=== PATIENT | female | born 1990 | race African-American/Black ===

== ENCOUNTER 2017-04-17 09:31 | Emergency (ER) | payer SELFPAY ==
[2017-04-17 10:47] LABS: APPEARANCE CLEAR (CLEAR); BACTERIA FEW /hpf (NONE SEEN); BILIRUBIN NEGATIVE (NEGATIVE); COLOR DK YELLOW (YELLOW); EPITHELIAL CELLS 0-5 /hpf (0-5); GLUCOSE NEGATIVE (NEGATIVE); KETONE NEGATIVE (NEGATIVE); LEUKOCYTE ESTERASE 1+ (NEGATIVE); MUCUS <1+ /lpf (NONE SEEN); NITRITE NEGATIVE (NEGATIVE); PROTEIN NEGATIVE (NEGATIVE); RED CELLS - URINE 0-5 /hpf (0-5); SPECIFIC GRAVITY 1.025 (1.005-1.020); UROBILINOGEN NORMAL (NORMAL); WHITE CELLS - URINE 0-5 /hpf (0-5)
== END 2017-04-17 14:27 | disposition home or self-care (01) ==
LOC: D.ER 09:31
PROVIDERS: Emergency Medicine
DX: A64 Unspecified sexually transmitted disease (principal); F17.200 Nicotine dependence, unspecified, uncomplicated

== ENCOUNTER 2018-10-31 16:45 | Emergency (ER) | payer SELFPAY ==
[~2018-10-31] VITALS: Ht 180.3 cm; Wt 68.2 kg
[2018-10-31 16:49] VITALS: Ht 180.3 cm; Wt 68.2 kg
[2018-10-31 17:49] LABS: HCG SERUM NEGATIVE (NEGATIVE)
[2018-10-31 18:01] LABS: HEMATOCRIT 32.4 % (36.0-48.0); HEMOGLOBIN 10.4 g/dL (12-16); MCH 23.1 pg (26.0-34.0); MCHC 32.1 g/dL (31.0-37.0); PLATELET COUNT 216 10x3/uL (130-400); RDW 29.2 % (11.5-14.5); WBC 8.7 10x3/uL (4.8-10.8)
[2018-10-31 18:33] LABS: BASOPHILS 1 % (0-2); EOSINOPHILS 4 % (0-7); LYMPHOCYTES 34 % (15-50); MONOCYTES 6 % (2-11); NEUTROPHILS 55 % (40-80); PLATELET ESTIMATE NORMAL; TARGET CELLS 1+
[2018-10-31 18:36] LABS: SCHISTOCYTES OCC
[2018-10-31 18:38] LABS: ALBUMIN 4.1 g/dL (3.4-5.0); ALKALINE PHOSPHATASE 45 U/L (46-116); ALT (SGPT) 7 U/L (10-68); CALC OSMOLALITY 273 mosm/kg (275-300); CALCIUM 8.6 mg/dL (8.5-10.1); CHLORIDE - SERUM 102 mmol/L (98-107); CREATININE - SERUM 0.7 mg/dL (0.6-1.3); GLUCOSE 82 mg/dL (74-106); POTASSIUM - SERUM 3.9 mmol/L (3.5-5.1); PROTEIN - SERUM 7.6 g/dL (6.4-8.2); SODIUM 138 mmol/L (136-145); UREA NITROGEN 11 mg/dL (7-18); eGFR NON AFRICAN AMERICAN > 90 mL/min (90-120)
[2018-10-31 18:42] LABS: AMYLASE - SERUM 43 U/L (25-115); CKMB 3.7 U/L (0.0-3.6); CREATINE KINASE 146 UL (21-215); MAGNESIUM - SERUM 1.8 mg/dL (1.8-2.4); PRO BNP 218 pg/mL (0-125); TROPONIN-I < 0.017 ng/mL (0.000-0.060)
[2018-10-31 18:45] LABS: ANISOCYTOSIS OCC; SPHEROCYTES 1+; TEAR DROP CELLS 2+
[2018-10-31 19:20] VITALS: BP 135/80
[2018-10-31 20:03] LABS: UDS - AMPHET POSITIVE QUAL (NEGATIVE); UDS - BARB NEGATIVE QUAL (NEGATIVE); UDS - BENZO NEGATIVE QUAL (NEGATIVE); UDS - COCAINE POSITIVE QUAL (NEGATIVE); UDS - OPIATE NEGATIVE QUAL (NEGATIVE); UDS - PCP NEGATIVE QUAL (NEGATIVE); UDS - THC POSITIVE QUAL (NEGATIVE)
[2018-10-31 20:12] LABS: APPEARANCE CLEAR (CLEAR); BILIRUBIN 1+ (NEGATIVE); COLOR DK YELLOW (YELLOW); GLUCOSE NEGATIVE (NEGATIVE); KETONE LARGE mg/dL (NEGATIVE); NITRITE NEGATIVE (NEGATIVE); PROTEIN 1+ mg/dL (NEGATIVE)
[2018-10-31 20:14] LABS: BACTERIA FEW /hpf (NONE SEEN); EPITHELIAL CELLS 0-5 /hpf (0-5); WHITE CELLS - URINE 0-5 /hpf (0-5)
== END 2018-10-31 19:20 | disposition left against medical advice (07) ==
LOC: D.ER 16:45
PROVIDERS: Family Medicine
DX: F19.10 Other psychoactive substance abuse, uncomplicated (principal); D64.9 Anemia, unspecified; D59.6 Hemoglobinuria due to hemolysis from other external causes

== ENCOUNTER 2018-11-03 17:15 | Emergency (ER) | payer SELFPAY ==
[~2018-11-03] VITALS: Ht 180.3 cm; Wt 79.2 kg
[2018-11-03 17:41] VITALS: Ht 180.3 cm; Wt 79.2 kg
[2018-11-03 20:14] VITALS: BP 120/77
== END 2018-11-03 20:14 | disposition home or self-care (01) ==
LOC: D.ER 17:15
DX: F19.10 Other psychoactive substance abuse, uncomplicated (principal)

== ENCOUNTER 2020-12-03 08:00 | Emergency (ER) | payer SELFPAY ==
[~2020-12-03] VITALS: Ht 180.3 cm; Wt 90.9 kg
[2020-12-03 08:03] VITALS: BP 158/99; Ht 180.3 cm; Wt 90.9 kg
[2020-12-03 08:29] LABS: BASOPHILS 0.5 % (0-2); EOSINOPHILS 1.1 % (0-7); HEMATOCRIT 30.1 % (36.0-48.0); HEMOGLOBIN 9.1 g/dL (12-16); IMMATURE GRANULOCYTES 0.2 % (0-5); LYMPHOCYTE ABS# 2.68 10x3/uL (1.18-3.74); LYMPHOCYTES 30.5 % (15-50); MCH 24.5 pg (26.0-34.0); MCHC 30.2 g/dL (31.0-37.0); MCV 80.9 fL (80.0-100.0); MONOCYTES 6.7 % (2-11); NEUTROPHIL ABS# 5.37 10x3/uL (1.56-6.13); RBC 3.72 10x6/uL (4.00-5.40); RDW 29.4 % (11.5-14.5); WBC 8.8 10x3/uL (4.8-10.8)
[2020-12-03 08:32] LABS: PLATELET COUNT 160 10x3/uL (130-400)
[2020-12-03 08:33] LABS: CHLORIDE - SERUM 98 mmol/L (98-107); CREATININE - SERUM 0.7 mg/dL (0.6-1.3); POTASSIUM - SERUM 3.8 mmol/L (3.5-5.1); SODIUM 136 mmol/L (136-145); UREA NITROGEN 9 mg/dL (7-18); eGFR NON AFRICAN AMERICAN > 90 mL/min (90-120)
[2020-12-03 08:39] LABS: ACETAMINOPHEN < 10.0 ug/mL (10.0-30.0); ALBUMIN 4.4 g/dL (3.4-5.0); ALKALINE PHOSPHATASE 48 U/L (30-120); ALT (SGPT) 30 U/L (10-68); BILIRUBIN - TOTAL 1.96 mg/dL (0.2-1.3); CALC OSMOLALITY 268 mosm/kg (275-300); MAGNESIUM - SERUM 1.4 mg/dL (1.8-2.4)
[2020-12-03 08:41] LABS: GLUCOSE 69 mg/dL (74-106)
[2020-12-03 10:52] LABS: BILIRUBIN NEGATIVE (NEGATIVE); KETONE MODERATE mg/dL (NEGATIVE); NITRITE NEGATIVE (NEGATIVE); UROBILINOGEN NORMAL mg/dL (< 2)
[2020-12-03 10:53] LABS: WHITE CELLS - URINE 0-5 HPF (0-4)
[2020-12-03 11:08] LABS: UDS - AMPHET POSITIVE QUAL (NEGATIVE); UDS - BARB NEGATIVE QUAL (NEGATIVE); UDS - BENZO NEGATIVE QUAL (NEGATIVE); UDS - COCAINE NEGATIVE QUAL (NEGATIVE); UDS - OPIATE NEGATIVE QUAL (NEGATIVE); UDS - PCP NEGATIVE QUAL (NEGATIVE); UDS - THC POSITIVE QUAL (NEGATIVE)
[2020-12-03] MEDS ORDERED: ZOFRAN ODT4 MG/UDTAB PO (11:39)
== END 2020-12-03 12:45 | disposition home or self-care (01) ==
LOC: D.ER 08:00
PROVIDERS: Family Medicine
DX: E86.0 Dehydration (principal); F12.10 Cannabis abuse, uncomplicated; F15.10 Other stimulant abuse, uncomplicated; R11.2 Nausea with vomiting, unspecified